=== PATIENT | male | born 1980 | race African-American/Black ===

== ENCOUNTER 2017-01-01 01:16 | Emergency (ER) | payer BC ==
[2017-01-01 01:22] VITALS: RESP 16; TEMP 97.9
--- NOTE | 2017-01-01 03:18 | EDPHY ---
H & P Stated Complaint: etoh/MJ Time Seen by Provider: 01/01/17 02:29 HPI/ROS: Chief Complaint: Agitation, alcohol and marijuana use HPI: 28-year-old male being brought in from his hotel after became agitated after drinking alcohol and using it will marijuana. Patient was anxious. No nausea or vomiting. No falls. Did not his head. No trauma. ROS: 10 point Review of Systems is negative except as noted in the HPI. PMH: Hypertension Social History: No smoking, occasional alcohol, occasional marijuana Family History: non-contributory Physical Exam: Gen: Awake, Alert, No Distress HEENT: Nose: no rhinorrhea Eyes: PERRLA, EOMI Mouth: Moist mucosa Neck: Supple, no JVD Chest: nontender, lungs clear to auscultation Heart: S1, S2 normal, no murmur Abd: Soft, non-tender, no guarding Back: no CVA tenderness, no midline tenderness Ext: no edema, non-tender Skin: no rash Neuro: CN II-XII intact, Sensation grossly intact, Strength 5/5 in bilateral upper and lower extremities - Personal History Current Tetanus Diphtheria and Acellular Pertussis (TDAP): No - Medical/Surgical History Hx Asthma: No Hx Chronic Respiratory Disease: No Hx Diabetes: No Hx Cardiac Disease: No Hx Renal Disease: No Hx Cirrhosis: No Hx Alcoholism: No Hx HIV/AIDS: No Hx Splenectomy or Spleen Trauma: No Other PMH: HTN - Social History Smoking Status: Never smoked Constitutional: Initial Vital Signs Temperature (C) 36.6 C 01/01/17 01:19 Heart Rate 100 01/01/17 01:19 Respiratory Rate 16 01/01/17 01:19 Blood Pressure 161/69 H 01/01/17 01:19 O2 Sat (%) 100 01/01/17 01:19 O2 Delivery Mode Room Air Allergies/Adverse Reactions: No Known Allergies Allergy (Unverified 01/01/17 01:19) Home Medications: Medication Instructions Recorded NK [No Known Home Meds] 01/01/17 Departure - Departure Disposition: Home, Routine, Self-Care Clinical Impression: Alcoholic intoxication, Marijuana use Condition: Good Instructions: Alcohol Intoxication (ED) Additional Instructions: Patient is now awake and appropriate. Ambulating unassisted to the bathroom. No current complaints. Medically cleared for discharge. He does have a sober ride. Referrals: CHAYITO MCKAY [Other] - As per Instructions
[2017-01-01 03:26] VITALS: BP 141/65; PULSE 81; O2SAT 96
== END 2017-01-01 03:25 | disposition home or self-care (01) ==
DX: F12.90 Cannabis use, unspecified, uncomplicated (principal); F10.129 Alcohol abuse with intoxication, unspecified; I10 Essential (primary) hypertension